=== PATIENT | female | born 1990 | race Caucasian/White ===

== ENCOUNTER 2016-08-15 17:57 | Emergency (ER) | payer BC ==
[2016-08-15 18:12] VITALS: BP 78/51
--- NOTE | 2016-08-15 18:28 | EDM.PDOC ---
ED HPI GENERAL MEDICAL PROBLEM - General Chief Complaint: Lower Extremity Injury/Pain Stated Complaint: RIGHT GREAT TOE LACERATION Time Seen by Provider: 08/15/16 18:03 Source of Information: Reports: Patient History Limitations: Reports: No Limitations - History of Present Illness INITIAL COMMENTS - FREE TEXT/NARRATIVE: The patient presents with complaint of an injury to her right great toe when she accidentally dropped an auto alexandra on her left toe. She has a crush injury with laceration of the distal toe and partial traumatic amputation of her proximal toenail. She is not bearing weight on foot after the injury secondary to pain. She denies other injuries or complaints. She is not aware of the date of her last tetanus vaccination. Right Feet Pain Score (Numeric/FACES): 8 - Related Data Allergies Allergy/AdvReac Type Severity Reaction Status Date / Time No Known Allergies Allergy Verified 08/15/16 18:12 Home Meds: Home Meds Levothyroxine 25 mcg PO ACBREAKFAST 08/15/16 [History] Review of Systems - Review of Systems Review Of Systems: ROS reveals no pertinent complaints other than HPI. ED EXAM, GENERAL - Physical Exam Exam: See Below Exam Limited By: No Limitations General Appearance: Alert, WD/WN, No Apparent Distress Eye Exam: Bilateral Eye: EOMI, Normal Inspection, PERRL Ears: Normal External Exam, Normal Canal, Hearing Grossly Normal, Normal TMs Ear Exam: Bilateral Ear: Auricle Normal, Canal Normal, TM normal Nose: Normal Inspection, Normal Mucosa, No Blood Throat/Mouth: Normal Inspection, Normal Lips, Normal Teeth, Normal Gums, Normal Oropharynx Head: Atraumatic, Normocephalic Neck: Normal Inspection Respiratory/Chest: No Respiratory Distress, Lungs Clear, Normal Breath Sounds Cardiovascular: Normal Peripheral Pulses, Regular Rate, Rhythm, No Edema, No Gallop, No Murmur, No Rub GI/Abdominal: Normal Bowel Sounds, Soft, Non-Tender, No Distention Back Exam: Normal Inspection, Full Range of Motion Extremities: Normal Capillary Refill, Other (Crush injury of right great toe including partial traumatic amputation of the proximal toenail, and complex multi-limb laceration of the distal toe measuring approximately 2 cm total. Significant pain on palpation. No visible or palpable bone defect. Sensation intact to LT and PP. Able to flex/extend toe minimally at MTP and PIP joint. Capillary refill < 2 seconds in all toes. ) Neurological: Alert, Oriented, CN II-XII Intact, Normal Cognition, Normal Gait, Normal Reflexes, No Motor/Sensory Deficits Psychiatric: Normal Affect, Normal Mood Skin Exam: Warm, Dry, Intact, Normal Color, No Rash Lymphatic: No Adenopathy ED TRAUMA EXTREMITY PROCEDURES - Laceration/Wound Repair Right Toes Lac/Wound Length In cm: 3 (Right great toe complex multilimbed crush injury/ laceration) Appearance: Muscle, Irregular, Clean Distal NVT: Neuro & Vascular Intact, No Tendon Injury Anesthetic Type: Local Local Anesthesia - Lidocaine (Xylocaine): 1% Plain Local Anesthetic Volume: 5cc Skin Prep: Providone-Iodine (Betadine), Saline, Sterile Drape Saline Irrigation (cc's): 500 (Copiously irrigated) Exploration/Debridement/Repair: Wound Explored, Explored to Base, No Foreign Material Found, Multiple Flaps Aligned Closed With: Sutures Suture Size: 4-0 # of Sutures: 17 Suture Type: Nylon (Multiple Ethilon sutures and sutured to nail for anchoring in all directions. ) Sterile Dressing Applied: Nurse (Antibiotic ointment applied, sterile Telfa, and wrapped.) Tetanus Status Addressed: Yes Complications: No Course - Vital Signs Last Recorded V/S: Last Vital Signs Temp 37.7 C 08/15/16 18:03 Pulse 87 08/15/16 18:03 Resp 20 08/15/16 18:03 BP 78/51 L 08/15/16 18:03 Pulse Ox 100 08/15/16 18:03 - Orders/Labs/Meds Orders: Active Orders 24 hr Category Date Time Status Foot Comp Min 3V Rt [CR] Stat Exams 08/15/16 18:36 Taken Meds: Medications Discontinued Medications Generic Name Dose Route Start Last Admin Trade Name Freq PRN Reason Stop Dose Admin Lidocaine HCl 5 ml 08/15/16 18:47 08/15/16 18:55 Xylocaine-Mpf 1% INJECT 08/15/16 18:48 5 ml ONETIME ONE Administration Lidocaine HCl 5 ml 08/15/16 18:52 08/15/16 18:55 Xylocaine-Mpf 1% INJECT 08/15/16 18:53 5 ml ONETIME ONE Administration Lidocaine HCl Confirm 08/15/16 19:39 08/15/16 19:43 Xylocaine-Mpf 1% Administered 08/15/16 19:40 5 ml Dose Administration 5 ml .ROUTE .STK-MED ONE Neomycin/Polymyxin/Bacitracin 1 each 08/15/16 19:10 08/15/16 19:43 Triple Antibiotic Oint TOP 08/15/16 19:11 1 each ONETIME ONE Administration - Radiology Interpretation Free Text/Narrative:: XR shows fracture of tip of distal phalynx with mild displacement Departure - Departure Time of Disposition: 20:04 Disposition: Home, Self-Care 01 Clinical Impression: Crushing injury of right great toe, initial encounter Qualifiers: Encounter type: initial encounter Qualified Code(s): S97.111A - Crushing injury of right great toe, initial encounter Open fracture of distal phalanx of right great toe Qualifiers: Encounter type: initial encounter Fracture alignment: nondisplaced Qualified Code(s): S92.424B - Nondisplaced fracture of distal phalanx of right great toe, initial encounter for open fracture Laceration of right great toe with damage to nail Qualifiers: Encounter type: initial encounter Foreign body presence: without foreign body Qualified Code(s): S91.211A - Laceration without foreign body of right great toe with damage to nail, initial encounter - Discharge Information Forms: ED Department Discharge - My Orders Last 24 Hours: My Active Orders 08/15/16 18:36 Foot Comp Min 3V Rt [CR] Stat - Assessment/Plan Last 24 Hours: My Active Orders 08/15/16 18:36 Foot Comp Min 3V Rt [CR] Stat Assessment:: Crush injury of right great toe with open fracture of distal phalynx with mild displacement and multilimbed laceration measuring approximately 3 cm in total. Traumatic avulsion of nail. Plan: 1. Patient believes last tetanus booster was 2 years ago at [facility], patient will verify and instructed to get booster in 48 hours if not up to date. 2. Wound soaked and cleansed with 3:1 solution of sterile water to betadine and copiously irrigated. 3. Sutures performed as above. 4. Leave sterile dressing dry and in place until follow up with [facility]. 5. CAM walker boot to wear at all times. 6. No weight bearing on right great toe until cleared by [facility]. 7. OTC acetaminophen 500-1,000 mg or ibuprofen 400-800 mg every 6 hours as needed for mild pain. 8. Prescription for Percocet 5/325 mg tabs, 1 tab every 6 hours as needed for moderate to moderately severe pain, 10 tabs, 0 refills. 9. Elevate and ice in 20 minute cycles every 1-2 hours as able and as tolerated. 10. Patient instructed to call and schedule follow up with [facility] early next week for next available appointment. 11. Follow up with PCP in clinic in 10 days for suture removal or sooner if increased pain, redness, swelling, drainage, fever, mental status changes, or other emergent concerns. 12. Return to ER with severe/refractory increased pain or swelling, pale or blue or cold toe, fever > 101 F not responsive to acetaminophen or ibuprofen, mental status changes, or other emergent concerns.
[2016-08-15] MEDS ORDERED: Bacitracin/Neomycin/Polymyxin B Oint 0.9 GM U/D Packet TOP ONE (19:10)
[2016-08-15] MEDS ORDERED: Acetaminophen/oxyCODONE 325-5 MG Tab PO ONE (20:17)
== END 2016-08-15 20:36 | disposition home or self-care (01) ==
LOC: LL.ED 17:57
DX: S97.111A Crushing injury of right great toe, initial encounter (principal); S92.424B Nondisplaced fracture of distal phalanx of right great toe, initial encounter for open fracture; W23.1XXA Caught, crushed, jammed, or pinched between stationary objects, initial encounter
CPT/HCPCS: 11760; 73630; 99283; A9270